=== PATIENT | male | born 1980 ===

== ENCOUNTER → 2019-03-08 | Outpatient (CLI) | payer OTHER | END | disposition home or self-care (01) | LOC: PREOP 05:55 | PROVIDERS: ATTEND Surgery | DX: Z01.818 Encounter for other preprocedural examination (principal) ==

== ENCOUNTER 2019-03-12 11:58 | Day surgery (SDC) | payer OTHER ==
[~2019-03-12] VITALS: Ht 162.6 cm; Wt 71.2 kg
[2019-03-12] MEDS ORDERED: LACTATED RINGERS 1,000 ML IV ONE (12:03)
[2019-03-12 12:35] VITALS: BP 117/75
[2019-03-12] MEDS ORDERED: PROPOFOL INJECTION 50 ML IV ONE (12:41)
--- NOTE | 2019-03-12 12:55 | Progress Note-Pre Operative ---
Pre-Operative Progress Note H&P Reviewed The H&P was reviewed, patient examined and no changes noted. Time Seen by Provider: 12:52 Date H&P Reviewed: Mar 12, 2019 Time H&P Reviewed: 12:53 Pre-Operative Diagnosis: rectal bleed, rectal pain REUBEN CROWLEY DO Mar 12, 2019 12:55
[2019-03-12] MEDS ORDERED: LACTATED RINGERS 1,000 ML IV STA (13:02)
[2019-03-12] MEDS ORDERED: fentaNYL INJECTION 100 MCG/2 ML AMP IVP ONE (13:15)
[2019-03-12] MEDS ORDERED: MIDAZOLAM 2 MG/2 ML (VERSED) VIAL IVP ONE (13:15)
[2019-03-12 13:30] VITALS: BP 130/82
--- NOTE | 2019-03-12 13:31 | Progress Note-Post Operative ---
Post-Operative Progess Note Surgeon (s)/Kettle Loader (s) Surgeon REUBEN CROWLEY DO Kettle Loader: Timo Bailey, MS III Pre-Operative Diagnosis rectal bleed, rectal pain Post-Operative Diagnosis Same plus Internal hemorrhoids Procedure & Operative Findings Date of Procedure 03/12/19 Procedure Performed/Findings Colonoscopy Anesthesia Type IV sedation by SECURITY TESTER Estimated Blood Loss Estimated blood loss (mL): scant Specimens/Packing Specimens Removed none REUBEN CROWLEY DO Mar 12, 2019 13:31
--- NOTE | 2019-03-12 13:32 | Endoscopy Discharge Instruct ---
Endo Procedure/Findings Findings 1.: Internal Hemorrhoids 2.: Other Findings (Pruritis Ani) Discharge Instructions - Activity: You might feel a little sleepy until tomorrow. This is due to the medicine you received to relax you. Until tomorrow, you should: NOT drive a car, operate machinery or power tools. NOT drink any alcoholic beverages. NOT make any important decisions or sign importortant papers. Do not return to work until tomorrow, unless otherwise instructed. Resume previous activities tomorrow. Diet: Start by taking liquids. If you tolerate liquids, advance to solid food. Make an appointment for one week Notify Physician - If you experience excessive bleeding, unusual abdominal pain, fever, or chest pain, contact your doctor immediately. Follow-Up: - I have received and understand the above instructions and will call my doctor if I have any further questions. Patient Signature Date Nurse Signature Other (Relationship) REUBEN CROWLEY DO Mar 12, 2019 13:32
[2019-03-12 13:35] VITALS: BP 120/78
[2019-03-12 13:40] VITALS: BP_SYST 114; BP_SYST 117; BP_DIAS 71; BP_DIAS 74
[2019-03-12 14:10] VITALS: BP 115/73
[2019-03-12 14:20] VITALS: BP 115/73
--- NOTE | 2019-03-12 18:37 | OPERATIVE REPORT ---
DATE OF SERVICE: 03/12/2019 PREOPERATIVE DIAGNOSES: Rectal bleed, anal pain, rectal itching and anal itching. POSTOPERATIVE DIAGNOSES: Rectal bleed, anal pain, rectal itching, anal itching and internal hemorrhoids. PROCEDURE PERFORMED: Colonoscopy. SURGEON: Dell Sanchez DO. HAND OR MACHINE PASTER: Timo Bailey, medical student level 3. ANESTHESIA: IV sedation by KEYSMITH. SPECIMENS: None. BLOOD LOSS: None. FLUIDS: Per Anesthesia. POSTOPERATIVE CONDITION: Stable. INDICATION FOR PROCEDURE: The patient is a 39-year-old male who had a history of rectal bleeding about a year ago, has been having some anal pain and anal itching and needed a workup. FINDINGS: The patient had some internal hemorrhoids and possibly some pruritus ani but no other obvious pathology. PROCEDURE NOTE: After informed consent was obtained, the patient was brought to the endoscopy suite and placed in the left lateral decubitus position. He was administered IV sedation by the KEYSMITH who then monitored his vitals the entire time, heart rate, blood pressure and pulse ox and the scope was then inserted, pushed all the way about 140 cm, able to get to the cecum, took a picture of appendiceal orifice, noted the ileocecal valve and then slowly withdrew the scope insufflating the circumferential wall looking at the cecum, up the ascending colon to the hepatic flexure, down the transverse colon, splenic flexure, descending colon down into the sigmoid and finally into the rectum, retroflexed the rectal vault, saw some minimal internal hemorrhoids, probably grade II. No other obvious pathology seen. Removed the scope. The patient tolerated the procedure, recovered in endoscopy suite. Job ID: [id number] DocumentID: [id number] Dictated Date: 03/12/2019 13:45:11 Engraved Roller Inspector Date: 03/12/2019 18:36:45 Dictated By: DELL SANCHEZ DO MTDD
== END 2019-03-12 14:20 | disposition home or self-care (01) ==
LOC: ENDO 11:58
PROVIDERS: ATTEND Surgery
DX: K62.5 Hemorrhage of anus and rectum (principal); K62.89 Other specified diseases of anus and rectum; L29.0 Pruritus ani; K64.8 Other hemorrhoids

== ENCOUNTER 2019-12-21 08:10 | Outpatient (RCR) | payer OTHER ==
[2019-12-20 14:27] VITALS: BP 128/76
[~2019-12-21] VITALS: Ht 165 cm; Wt 72.3 kg
== END 2019-12-21 14:32 | disposition home or self-care (01) ==
LOC: PREOP 08:10
PROVIDERS: ATTEND Surgery
DX: Z01.818 Encounter for other preprocedural examination (principal); Z11.59 Encounter for screening for other viral diseases; K64.9 Unspecified hemorrhoids; Z11.2 Encounter for screening for other bacterial diseases
CPT/HCPCS: 87081; 87635